=== PATIENT | female | born 1945 | race Two or more races ===

== ENCOUNTER 2018-03-09 07:34 | Outpatient (CLI) | payer OTHER ==
[~2018-03-09 07:34] MED LIST: DIOVAN40 MG PO; INDUR; PLAVIX75 MG PO; SYNTHROID50 MCG
== END 2018-03-09 07:44 | disposition home or self-care (01) ==
LOC: LAB 07:34
DX: I10 Essential (primary) hypertension (principal); E78.4 Other hyperlipidemia; E03.4 Atrophy of thyroid (acquired)

== ENCOUNTER 2018-11-17 07:06 | Outpatient (CLI) | payer OTHER | END 2018-11-17 07:15 | disposition home or self-care (01) | LOC: LAB 07:06 | DX: E78.49 Other hyperlipidemia (principal); E03.4 Atrophy of thyroid (acquired); I10 Essential (primary) hypertension ==

== ENCOUNTER 2018-12-14 11:13 | Outpatient (CLI) | payer OTHER | END 2018-12-14 11:18 | disposition home or self-care (01) | LOC: RAD 11:13 | DX: J01.90 Acute sinusitis, unspecified (principal); J32.8 Other chronic sinusitis ==

== ENCOUNTER 2018-12-24 10:12 | Emergency (ER) | payer OTHER ==
[~2018-12-24] VITALS: Ht 157.5 cm; Wt 68.0 kg
[2018-12-24] MEDS ORDERED: ULTRACET PO ×2 (15:08→15:20)
[2018-12-24] MEDS ORDERED: FLAGYL500MG PO (15:08)
[2018-12-24] MEDS ORDERED: CIPRO500 MG PO (15:08)
[2018-12-24] MEDS ORDERED: INTESTINEX680 M1 PO (15:08)
== END 2018-12-24 17:10 | disposition home or self-care (01) ==
LOC: ER 10:12
DX: K57.92 Diverticulitis of intestine, part unspecified, without perforation or abscess without bleeding (principal); R10.32 Left lower quadrant pain

== ENCOUNTER 2018-12-27 11:56 | Outpatient (CLI) | payer OTHER ==
[~2018-12-27 11:56] MED LIST changes: +CIPRO500 MG PO; +FLAGYL500MG PO; +INTESTINEX680 M1 PO; +ULTRACET PO
== END 2018-12-27 12:01 | disposition home or self-care (01) ==
LOC: LAB 11:56
DX: N39.0 Urinary tract infection, site not specified (principal)

== ENCOUNTER 2019-02-21 09:50 | Outpatient (CLI) | payer OTHER | END 2019-02-21 13:20 | disposition home or self-care (01) | LOC: LAB 09:50 | DX: D50.0 Iron deficiency anemia secondary to blood loss (chronic) (principal); E11.69 Type 2 diabetes mellitus with other specified complication; E78.00 Pure hypercholesterolemia, unspecified; E03.8 Other specified hypothyroidism; N39.0 Urinary tract infection, site not specified; Z12.11 Encounter for screening for malignant neoplasm of colon; K62.5 Hemorrhage of anus and rectum; R10.9 Unspecified abdominal pain; E55.9 Vitamin D deficiency, unspecified ==

== ENCOUNTER 2019-12-26 13:00 | Outpatient (CLI) | payer OTHER | END 2019-12-26 13:07 | disposition home or self-care (01) | LOC: MAMO-SONO 13:00 | DX: Z12.31 Encounter for screening mammogram for malignant neoplasm of breast (principal); Z87.898 Personal history of other specified conditions; N94.0 Mittelschmerz; R10.2 Pelvic and perineal pain; N94.89 Other specified conditions associated with female genital organs and menstrual cycle ==

== ENCOUNTER → 2019-12-26 15:13 | Outpatient (CLI) | payer OTHER | END | disposition home or self-care (01) | LOC: LAB 15:13 | DX: E11.65 Type 2 diabetes mellitus with hyperglycemia (principal); D64.89 Other specified anemias; E03.8 Other specified hypothyroidism; E78.2 Mixed hyperlipidemia; Z12.11 Encounter for screening for malignant neoplasm of colon; D68.8 Other specified coagulation defects; Z00.00 Encounter for general adult medical examination without abnormal findings; I10 Essential (primary) hypertension; E78.00 Pure hypercholesterolemia, unspecified; N39.0 Urinary tract infection, site not specified; Z11.4 Encounter for screening for human immunodeficiency virus [HIV]; E55.9 Vitamin D deficiency, unspecified; Z21 Asymptomatic human immunodeficiency virus [HIV] infection status; R79.89 Other specified abnormal findings of blood chemistry ==

== ENCOUNTER 2020-01-16 13:35 | Emergency (ER) | payer OTHER ==
[~2020-01-16] VITALS: Ht 157.5 cm; Wt 67.1 kg
[2020-01-16] MEDS ORDERED: PROMETH-CODEIN 65 ML PO (19:30)
== END 2020-01-16 21:00 | disposition home or self-care (01) ==
LOC: ER 13:35
DX: J40 Bronchitis, not specified as acute or chronic (principal)

== ENCOUNTER → 2024-10-20 | Emergency (ER) | payer OTHER ==
[~2024-10-20] VITALS: Ht 149.9 cm; Wt 53.1 kg
[~2024-10-20] MED LIST changes: +DOPamine HCL IN DEXTROSE 5 % 250 ML IV SCH; +FAMOTIDINE/PF 20 MG/2 ML VIAL IV STA; +ONDANSETRON HCL 2 MG/ML VIAL IV STA; +PROMETH-CODEIN 65 ML PO
[2024-10-20 15:12] LABS: CALCIUM 8.4 mg/dL (8.5-10.1); CREATININE SERUM 0.86 mg/dL (0.55-1.02); GFR 63.49; POTASSIUM 4.01 mEq/L (3.5-5.1); TSH 2.23 uIU/mL (0.358-3.74)
[2024-10-20 15:54] LABS: MEAN CORPUSCULAR HEMOGLOBIN 31.4 pg (27.00-32.0); MEAN CORPUSCULAR HGB CONC 34.5 g/dl (32.0-36.0); RED BLOOD COUNT 3.18 M/uL (4.00-6.00); RED CELL DISTRIBUTION WIDTH 14.5 % (11.5-14.5)
[2024-10-20 15:55] LABS: PLATELET COUNT 308 K/uL (150-450)
[2024-10-20 19:12] LABS: ABG PH 7.455 (7.35-7.45); ABG PO2 124.6 mmHg (80-100); ABG pCO2 25.8 mmHg (35-45); BASE EXCESS -4.3 mmol/l; BICARBONATE 17.7 mmol/l (23-25); SaO2 98.9 %; Tco2 18.5 mmol/l; allen test SATISFACTORY; o2 21 %; puncture site RADIAL LEFT
[2024-10-20 20:46] LABS: URINE APPEARANCE Clear; URINE BILIRRUBIN Negative (NEGATIVE); URINE BLOOD Negative; URINE COLOR Yellow; URINE GLUCOSE Negative (NEGATIVE); URINE KETONE Negative (NEGATIVE); URINE LEUKOCYTE Small; URINE NITRATE Negative; URINE PROTEIN 30 (NEGATIVE); URINE UROBILINOGEN 0.2 E.U./dl
[2024-10-20 20:50] LABS: URINE BACTERIA 619.3 uL (0.0-1933); URINE EPITHELIAL CELLS 58.8 uL (0.0-38.8); URINE WBC 32.1 uL (0.0-23.2)
[2024-10-20 20:59] VITALS: BP 149/41; O2SAT 100
[2024-10-20 21:22] LABS: URINE MUCUS SCANT
== END | disposition designated cancer center or children's hospital (05) ==
LOC: ER 12:40
PROVIDERS: Emergency Medicine
DX: R00.1 Bradycardia, unspecified (principal); Z88.6 Allergy status to analgesic agent; Z91.018 Allergy to other foods; I70.8 Atherosclerosis of other arteries; C90.00 Multiple myeloma not having achieved remission; M19.90 Unspecified osteoarthritis, unspecified site; I44.2 Atrioventricular block, complete; I13.0 Hypertensive heart and chronic kidney disease with heart failure and stage 1 through stage 4 chronic kidney disease, or unspecified chronic kidney disease; N18.4 Chronic kidney disease, stage 4 (severe); I50.9 Heart failure, unspecified; D64.89 Other specified anemias